=== PATIENT | female | born 1990 | race Caucasian/White ===

== ENCOUNTER 2024-06-29 07:37 | Emergency (ER) | payer MEDICAID ==
[~2024-06-29] VITALS: Ht 182.9 cm; Wt 136.0 kg
[2024-06-29 07:39] VITALS: O2SAT 100
[2024-06-29 08:30] VITALS: TEMP 98.1
[2024-06-29 08:32] LABS: BASOPHILS % 0.2 % (0.0-2.0); EOSINOPHILS % 0.7 % (0.0-5.0); HEMATOCRIT. 42.4 % (36.0-48.0); HEMOGLOBIN. 14.3 g/dL (12.0-16.0); LYMPHOCYTES % 12.5 % (20.0-50.0); MEAN CORPUSCULAR HEMOGLOBIN 28.9 pg (28.0-32.0); MEAN CORPUSCULAR HGB CONC 33.8 g/dL (31.0-37.0); MEAN CORPUSCULAR VOLUME 85.7 fL (81.0-99.0); MEAN PLATELET VOLUME 7.9 fl (7.4-10.4); MONOCYTES % 3.7 % (2.0-8.0); NEUTROPHILS % 82.9 % (40.0-76.0); PLATELET 278 x1000/uL (130-400); RED BLOOD CELL COUNT 4.95 mill/uL (4.2-5.4); RED CELL DISTRIBUTION WIDTH 12.7 % (11.6-14.6); WHITE BLOOD COUNT 13.5 x1000/uL (4.5-11.0)
[2024-06-29 08:35] LABS: CHLORIDE 105 mEq/L (98-107); HCG SCREEN NEGATIVE; POTASSIUM 4.3 mEq/L (3.5-5.1); SODIUM 139 mEq/L (136-145)
[2024-06-29 08:36] LABS: CALCIUM 9.5 mg/dL (8.7-10.4); CARBON DIOXIDE 25 mEq/L (21-32)
[2024-06-29 08:41] LABS: CREATININE 0.6 mg/dL (0.6-1.0); GLUCOSE 193 mg/dL (70-105); UREA NITROGEN BLOOD 9 mg/dL (9-23)
[2024-06-29 08:45] LABS: ETHANOL BLOOD < 10 mg/dL (<10)
[2024-06-29] MEDS: LEVETIRACETAM 1000MG PREMIX 100 ML IV ONE (08:59)
[2024-06-29 17:20] VITALS: BP 136/91; PULSE 99; RESP 33
== END 2024-06-29 17:30 ==
LOC: ER 08:09
DX: R56.9 Unspecified convulsions (principal)
CPT/HCPCS: 80048; 80320; 84703; 85025; 36415; 96365; 96366; 99285; J1953; G0480